=== PATIENT | male | born 1960 | race Caucasian/White ===

== ENCOUNTER 2024-01-30 17:30 | Inpatient (IN) ==
[2024-01-30] MEDS ORDERED: Etomidate 40 mg/20 ml (2 MG/ML) 20 ml VIAL (40 mg) ONE (17:43)
[2024-01-30] MEDS ORDERED: Succinylcholine 200 mg VIAL 20 mg/ml 10 ml VIAL (200 mg) ONE (17:43)
[2024-01-30] MEDS ORDERED: Propofol 10 mg/ml 100 ML BTL 1,000 MG/100 ML BTL ONE (17:54)
[2024-01-30 18:11] LABS: ABS Basophils 0.1 10^3/uL (0.0-0.1); ABS Eosinophils 0.1 10^3/uL (0.0-0.5); ABS Monocytes 0.4 10^3/uL (0.0-1.1); ABS Neutrophils 7.9 10^3/uL (1.5-7.6); Eosinophil % 1.1 %; Hematocrit 41.1 % (38-53); Hemoglobin 13.9 g/dL (13.2-16.3); Lymphocyte % 26.1 %; Mean Corpuscular Hemoglobin 28.6 pg (27-33); Mean Corpuscular Hgb Conc 33.9 g/dL (31-36); Mean Corpuscular Volume 84.4 fL (80-97); Platelet Count 274 10^3/uL (150-450); Red Blood Count 4.87 10^6/uL (4.06-5.63); Red Cell Distribution Width 13.5 % (12-17); White Blood Count 11.5 10^3/uL (3.6-10.2)
[2024-01-30] MEDS: Propofol 10 mg/ml 100 ML BTL 1,000 MG/100 ML BTL IV SCH (18:32)
[2024-01-30 18:34] LABS: ALT 13 U/L (7-52); AST 16 U/L (13-39); Albumin/Globulin Ratio 1.4 (1-3); Alkaline Phosphatase 95 U/L (35-149); Anion Gap 7 mmol/L (2-16); Blood Urea Nitrogen 12 mg/dL (6-24); CO2 Carbon Dioxide 28 mmol/L (22-32); Calcium 9.2 mg/dL (8.6-10.3); Chloride 103 mmol/L (101-111); Creatinine, Serum 1.24 mg/dL (0.67-1.17); Globulin 2.8 g/dL (2-4); Glucose 180 mg/dL (70-100); Potassium 3.6 mmol/L (3.5-5.0); Sodium 138 mmol/L (135-145); Total Bilirubin 0.4 mg/dL (0.2-1.0); Total Protein 6.8 g/dL (6.4-8.9); eGFR CKD-EPI 64.9 (>60)
[2024-01-30 18:38] LABS: Acetaminophen 71 mcg/mL; Alcohol, S 409 mg/dL (<13); Salicylate < 2.50 mg/dL (<30)
[2024-01-30 18:48] LABS: INR 1.03 (0.85-1.14)
[2024-01-30 18:53] LABS: Urine Appearance Clear; Urine Bilirubin Negative (Negative); Urine Blood Trace (Negative); Urine Color Light-Yellow; Urine Glucose Negative (Negative); Urine Ketones Negative (Negative); Urine Nitrite Negative (Negative); Urine Protein 1+ (>=30 mg/dL) (Negative); Urine Specific Gravity 1.013 (1.002-1.030); Urine Urobilinogen Negative (Negative); Urine pH 5.5 (5.0-8.0)
[2024-01-30] MEDS: Piperacillin/Tazobac 3.375 BAG 3.375 GM/100 ML BAG IV ONE (18:53)
[2024-01-30] MEDS ORDERED: Zosyn per Pharmacy NOTE FOLLOW UP SCH (19:00)
[2024-01-30] MEDS ORDERED: ACETYLCYSTEINE IV SCH ×3 (19:00)
[2024-01-30] MEDS ORDERED: D5W IV SCH ×3 (19:00)
[2024-01-30 19:09] LABS: Urine Benzodiazepine Screen None Detected (None Detect); Urine Cannabinoids Screen None Detected (None Detect); Urine Opiates Screen Presumptive Positive (None Detect)
[2024-01-30 19:24] LABS: Vitamin B12 200 pg/mL (180-914)
[2024-01-30] MEDS ORDERED: ACETYLCYSTEINE IV ONE (19:30)
[2024-01-30] MEDS ORDERED: D5W IV ONE (19:30)
[2024-01-30] MEDS ORDERED: Albuterol 2.5mg/3 ml (0.083%) NEB.SOLN INH PRN (20:11)
[2024-01-30] MEDS: Norepinephrine 4 MG/250mL D5W 4,000 MCG/250 ML BAG IV SCH (21:10)
[2024-01-30 21:18] LABS: Urine Appearance Clear; Urine Bilirubin Negative (Negative); Urine Blood Negative (Negative); Urine Color Colorless; Urine Glucose Negative (Negative); Urine Ketones Negative (Negative); Urine Nitrite Negative (Negative); Urine Protein Negative (Negative); Urine Specific Gravity 1.005 (1.002-1.030); Urine Urobilinogen Negative (Negative)
[2024-01-30] MEDS: D5W IV ONE ×2 (21:21→22:26)
[2024-01-30] MEDS: ACETYLCYSTEINE IV ONE ×2 (21:21→22:26)
[2024-01-30] MEDS: Norepinephrine 4 MG/250mL D5W 4,000 MCG/250 ML BAG IV ONE (21:57)
[2024-01-30 22:09] LABS: Resp Rate 14
[2024-01-30 22:11] LABS: PCO2 Arterial 50 mmHg (35-45); PO2 Arterial 94 mmHg (80-100)
[2024-01-30] MEDS: Chlorhexidine MOUTHWASH 0.12% 15 ML UDC TOPICAL SCH (22:23)
[2024-01-30] MEDS: Famotidine IV 10 MG/ML 2 ml VIAL (20 mg) IV SLOW PU SCH (22:23)
[2024-01-30] MEDS: Heparin 5000 UNITS/ML 1 mL VIAL SUBCUT SCH (22:23)
[2024-01-30] MEDS: Lactated Ringers 1000 ml BAG 1,000 ML IV SCH (22:25)
[2024-01-31] MEDS ORDERED: Dextrose 50% Syringe 50 ml 25 GM/50 ML SYRINGE IV PUSH PRN (00:16)
[2024-01-31] MEDS: ACETYLCYSTEINE IV ONE (00:29)
[2024-01-31] MEDS: D5W IV ONE (00:29)
[2024-01-31] MEDS: ZOSYN 3.375 GM Q8H per EXTENDED INFUSION IV SCH ×3 (00:30→03:13)
[2024-01-31 01:06] LABS: PCO2 Arterial 37 mmHg (35-45); PO2 Arterial 112 mmHg (80-100)
[2024-01-31] MEDS: Midazolam 5 mg/5 ml VIAL 1 mg/ml 5 ml VIAL (5 mg) IV SLOW PU PRN ×2 (01:15→10:30)
[2024-01-31 01:35] LABS: Albumin 3.6 g/dL (3.5-5.7); Albumin/Globulin Ratio 1.4 (1-3); Calcium 8.2 mg/dL (8.6-10.3); Creatinine, Serum 0.89 mg/dL (0.67-1.17); Globulin 2.5 g/dL (2-4); Potassium 3.5 mmol/L (3.5-5.0); Total Bilirubin 0.3 mg/dL (0.2-1.0); Total Protein 6.1 g/dL (6.4-8.9); eGFR CKD-EPI 95.7 (>60)
[2024-01-31 04:32] LABS: INR 1.2 (0.85-1.14)
[2024-01-31 04:39] LABS: ABS Basophils 0.2 10^3/uL (0.0-0.1); ABS Eosinophils 0.2 10^3/uL (0.0-0.5); ABS Lymphocytes 2.9 10^3/uL (1.0-4.8); ABS Monocytes 0.8 10^3/uL (0.0-1.1); ABS Neutrophils 15.2 10^3/uL (1.5-7.6); ABS Nucleated RBC 0.02 10^3/ul; Eosinophil % 0.9 %; Hematocrit 40.3 % (38-53); Hemoglobin 13.9 g/dL (13.2-16.3); Mean Corpuscular Hemoglobin 28.9 pg (27-33); Mean Corpuscular Hgb Conc 34.6 g/dL (31-36); Mean Corpuscular Volume 83.4 fL (80-97); Mean Platelet Volume 7.9 fL (7.5-11.2); Nucleated Red Blood Cells % 0.1 %/100WBC (0.0-0.8); Platelet Count 378 10^3/uL (150-450); Red Blood Count 4.83 10^6/uL (4.06-5.63); Red Cell Distribution Width 13.7 % (12-17); White Blood Count 19.3 10^3/uL (3.6-10.2)
[2024-01-31 04:51] LABS: Calcium 8.4 mg/dL (8.6-10.3); Creatinine, Serum 0.89 mg/dL (0.67-1.17); Magnesium 1.5 mg/dL (1.9-2.7); Phosphorus 1.8 mg/dL (2.5-5.0); eGFR CKD-EPI 95.7 (>60)
[2024-01-31] MEDS: Magnesium Sulf 4 GM/100 ML IV 4,000 MG/100 ML BAG IVPB ONE (05:19)
[2024-01-31] MEDS: Potassium Phosphate IV 15 MMOL in NS 0.9% 250 ml 250 ML IVPB ONE (05:25)
[2024-01-31] MEDS: Midazolam 5 mg/5 ml VIAL 1 mg/ml 5 ml VIAL (5 mg) IV SLOW PU ONE (07:45)
[2024-01-31] MEDS ORDERED: Ondansetron 4 mg VIAL 2 MG/ML 2 ml VIAL IV PRN (07:56)
[2024-01-31] MEDS: Albumin Human 5% 12.5 GM/250 ML BTL IV ONE (08:06)
[2024-01-31] MEDS: Thiamine 100 MG/ML 2 ml VIAL 100 MG in NS 0.9% 50 ML 50 ML IV SCH (09:17)
[2024-01-31] MEDS: Sulfur Hexaflouride MICROSPHR 25 MG VIAL IV PRN (09:27)
[2024-01-31] MEDS: fentaNYL 100 mcg/2 ml 50 MCG/ML VIAL IV SLOW PU PRN (16:20)
[2024-01-31 16:43] LABS: ALT 10 U/L (7-52); AST 16 U/L (13-39); Acetaminophen < 15 mcg/mL; Albumin 3.4 g/dL (3.5-5.7); Albumin/Globulin Ratio 1.4 (1-3); Alkaline Phosphatase 80 U/L (35-149); Anion Gap 6 mmol/L (2-16); Blood Urea Nitrogen 4 mg/dL (6-24); CO2 Carbon Dioxide 26 mmol/L (22-32); Calcium 8.1 mg/dL (8.6-10.3); Chloride 107 mmol/L (101-111); Creatine Kinase 270 U/L (10-223); Creatinine, Serum 0.83 mg/dL (0.67-1.17); Globulin 2.5 g/dL (2-4); Glucose 130 mg/dL (70-100); Potassium 3.5 mmol/L (3.5-5.0); Sodium 139 mmol/L (135-145); Total Bilirubin 0.5 mg/dL (0.2-1.0); Total Protein 5.9 g/dL (6.4-8.9); eGFR CKD-EPI 97.7 (>60)
[2024-01-31] MEDS ORDERED: fentaNYL 100 mcg/2 ml 50 MCG/ML VIAL IV SLOW PU PRN (21:14)
[2024-02-01 03:57] LABS: INR 1.15 (0.85-1.14)
[2024-02-01 04:20] LABS: Calcium 8.5 mg/dL (8.6-10.3); Creatinine, Serum 0.81 mg/dL (0.67-1.17); Magnesium 2.2 mg/dL (1.9-2.7); Potassium 3.3 mmol/L (3.5-5.0); eGFR CKD-EPI 98.5 (>60)
[2024-02-01 04:21] LABS: ABS Eosinophils 0.2 10^3/uL (0.0-0.5); ABS Lymphocytes 1.3 10^3/uL (1.0-4.8); ABS Monocytes 0.4 10^3/uL (0.0-1.1); ABS Neutrophils 5.8 10^3/uL (1.5-7.6); Eosinophil % 2.5 %; Hematocrit 30.8 % (38-53); Hemoglobin 10.9 g/dL (13.2-16.3); Lymphocyte % 17.1 %; Mean Corpuscular Hemoglobin 29.1 pg (27-33); Mean Corpuscular Hgb Conc 35.3 g/dL (31-36); Mean Corpuscular Volume 82.5 fL (80-97); Mean Platelet Volume 8.3 fL (7.5-11.2); Platelet Count 204 10^3/uL (150-450); Red Blood Count 3.73 10^6/uL (4.06-5.63); Red Cell Distribution Width 13.3 % (12-17); White Blood Count 7.8 10^3/uL (3.6-10.2)
[2024-02-01] MEDS: KCL 20 MEQ/100 ML IVPREMIX 20 MEQ/100 ML BAG IV SCH (07:45)
[2024-02-01] MEDS: Potassium Phosphate IV 15 MMOL in NS 0.9% 250 ml 250 ML IVPB ONE (09:05)
[2024-02-01] MEDS ORDERED: hydrALAZINE 20 mg/ml 1 ML Vial IV IV SLOW PU PRN (10:47)
[2024-02-02 05:34] LABS: ABS Eosinophils 0.2 10^3/uL (0.0-0.5); ABS Lymphocytes 1.5 10^3/uL (1.0-4.8); ABS Monocytes 0.4 10^3/uL (0.0-1.1); ABS Neutrophils 5.2 10^3/uL (1.5-7.6); Eosinophil % 2.9 %; Hematocrit 34.2 % (38-53); Lymphocyte % 20.1 %; Mean Corpuscular Hemoglobin 29.2 pg (27-33); Mean Corpuscular Hgb Conc 34.9 g/dL (31-36); Mean Corpuscular Volume 83.6 fL (80-97); Mean Platelet Volume 8.5 fL (7.5-11.2); Nucleated Red Blood Cells % 0.1 %/100WBC (0.0-0.8); Platelet Count 197 10^3/uL (150-450); Red Cell Distribution Width 13.4 % (12-17); White Blood Count 7.3 10^3/uL (3.6-10.2)
[2024-02-02 05:54] LABS: Calcium 8.4 mg/dL (8.6-10.3); Creatinine, Serum 0.82 mg/dL (0.67-1.17); Magnesium 2.1 mg/dL (1.9-2.7); Phosphorus 3.2 mg/dL (2.5-5.0); Potassium 3.8 mmol/L (3.5-5.0); eGFR CKD-EPI 98.1 (>60)
[2024-02-03 07:08] LABS: ABS Eosinophils 0.1 10^3/uL (0.0-0.5); ABS Lymphocytes 1.4 10^3/uL (1.0-4.8); ABS Monocytes 0.3 10^3/uL (0.0-1.1); ABS Neutrophils 5.5 10^3/uL (1.5-7.6); Eosinophil % 1.3 %; Hematocrit 34.2 % (38-53); Hemoglobin 11.9 g/dL (13.2-16.3); Lymphocyte % 19.3 %; Mean Corpuscular Hgb Conc 34.9 g/dL (31-36); Mean Corpuscular Volume 83.1 fL (80-97); Mean Platelet Volume 8.3 fL (7.5-11.2); Platelet Count 221 10^3/uL (150-450); Red Blood Count 4.12 10^6/uL (4.06-5.63); Red Cell Distribution Width 13.1 % (12-17); White Blood Count 7.4 10^3/uL (3.6-10.2)
[2024-02-03 07:13] LABS: Calcium 8.8 mg/dL (8.6-10.3); Creatinine, Serum 0.72 mg/dL (0.67-1.17); Magnesium 1.9 mg/dL (1.9-2.7); Potassium 3.7 mmol/L (3.5-5.0)
[2024-02-03 09:51] VITALS: BP 149/85
== END 2024-02-03 13:07 | DRG 720 ==
LOC: ED 17:30 → SUATTDRO 18:23 → EDHOLD 18:23 → ICU 19:27 → MEDTELE 02-02 21:52
PROVIDERS: ADMIT Internal Medicine Critical Care Medicine; ATTEND Student in an Organized Health Care Education/Training Program

== ENCOUNTER 2024-02-03 14:00 | Inpatient (IN) ==
[2024-02-03] MEDS ORDERED: Al Hydrox/Mg Hydrox/Simet LIQ 30 ML UDC PO PRN (15:23)
[2024-02-03] MEDS ORDERED: Albuterol HFA INHALER 8 gm MDI INH PRN (15:27)
[2024-02-03] MEDS ORDERED: Nicotine GUM 2MG FRUIT FLAVOR PO PRN (16:00)
[2024-02-03] MEDS: Nicotine PATCH 21 MG/24 HR PATCH TRANSDERM SCH (16:39)
[2024-02-04 08:21] LABS: HDL Cholesterol 27.9 mg/dL
[2024-02-04] MEDS: Vitamin THERAPEUTIC TAB PO SCH (11:40)
[2024-02-05 14:23] LABS: ABS Basophils 0.1 10^3/uL (0.0-0.1); ABS Eosinophils 0.1 10^3/uL (0.0-0.5); ABS Lymphocytes 1.4 10^3/uL (1.0-4.8); ABS Monocytes 0.5 10^3/uL (0.0-1.1); ABS Neutrophils 6.8 10^3/uL (1.5-7.6); Hematocrit 37.5 % (38-53); Mean Corpuscular Hemoglobin 28.6 pg (27-33); Mean Corpuscular Hgb Conc 34.7 g/dL (31-36); Mean Corpuscular Volume 82.4 fL (80-97); Mean Platelet Volume 7.4 fL (7.5-11.2); Platelet Count 292 10^3/uL (150-450); Red Blood Count 4.55 10^6/uL (4.06-5.63); Red Cell Distribution Width 13.4 % (12-17); White Blood Count 8.9 10^3/uL (3.6-10.2)
[2024-02-05 14:48] LABS: Albumin 4.1 g/dL (3.5-5.7); Albumin/Globulin Ratio 1.4 (1-3); C Reactive Protein 76.82 mg/L (<8.01); Creatinine, Serum 0.82 mg/dL (0.67-1.17); Potassium 3.6 mmol/L (3.5-5.0); Total Bilirubin 0.5 mg/dL (0.2-1.0); Total Protein 7.1 g/dL (6.4-8.9); eGFR CKD-EPI 98.1 (>60)
[2024-02-05 15:34] LABS: Erythrocyte Sed Rate 105 mm/Hr (0-19)
[2024-02-06 08:40] LABS: ABS Basophils 0.1 10^3/uL (0.0-0.1); ABS Eosinophils 0.2 10^3/uL (0.0-0.5); ABS Lymphocytes 1.6 10^3/uL (1.0-4.8); ABS Monocytes 0.4 10^3/uL (0.0-1.1); ABS Neutrophils 7.9 10^3/uL (1.5-7.6); Eosinophil % 1.9 %; Hematocrit 39.2 % (38-53); Hemoglobin 13.3 g/dL (13.2-16.3); Lymphocyte % 15.8 %; Mean Corpuscular Hemoglobin 28.4 pg (27-33); Mean Corpuscular Hgb Conc 33.9 g/dL (31-36); Mean Corpuscular Volume 83.7 fL (80-97); Mean Platelet Volume 7.6 fL (7.5-11.2); Platelet Count 300 10^3/uL (150-450); Red Blood Count 4.69 10^6/uL (4.06-5.63); Red Cell Distribution Width 13.2 % (12-17)
[2024-02-06 10:35] LABS: Erythrocyte Sed Rate 67 mm/Hr (0-19)
[2024-02-07 08:47] VITALS: BP 152/80
== END 2024-02-07 13:00 | disposition home or self-care (01) | DRG 816 ==
LOC: BSU 14:03
PROVIDERS: ADMIT Psychiatry & Neurology Psychiatry; ATTEND Psychiatry & Neurology Psychiatry